=== PATIENT | female | born 1975 | race American Indian/Alaskan Native ===

== ENCOUNTER 2016-10-28 14:08 | Emergency (ER) | payer MEDICAID, OTHER ==
[2016-10-28 14:24] VITALS: BP 155/97
[2016-10-28] MEDS ORDERED: MOTRIN PO ONE (16:26)
[2016-10-28] MEDS ORDERED: ZESTRIL PO ONE (16:59)
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
== END 2016-10-28 18:32 | disposition home or self-care (01) ==
LOC: ED 14:08
DX: S13.4XXA Sprain of ligaments of cervical spine, initial encounter (principal); R51 Headache; I10 Essential (primary) hypertension; Z87.891 Personal history of nicotine dependence; V89.2XXA Person injured in unspecified motor-vehicle accident, traffic, initial encounter; Y93.89 Activity, other specified; Y92.89 Other specified places as the place of occurrence of the external cause; Y99.8 Other external cause status
CPT/HCPCS: 70450; 72072